=== PATIENT | female | born 1985 | race Caucasian/White ===

== ENCOUNTER 2020-03-19 17:28 | Emergency (ER) | payer SELFPAY ==
[2020-03-19 17:40] VITALS: BP 144/84; PULSE 85; RESP 16; TEMP 36.9; O2SAT 99; BMI 25.5
--- NOTE | 2020-03-19 17:40 | ED_ITS ---
HPI - Extremity Injury (Lower) General: Chief Complaint: Extremity Injury, Lower Stated Complaint: foot pain Time Seen by Provider: 03/19/20 17:39 Source: patient Mode of arrival: ambulatory Limitations: no limitations History of Present Illness: HPI Narrative: Patient comes in for injury of the left knee. Patient was using a chainsaw and it kicked back on her laceration her left knee. Patient is ambulatory does report some tenderness to the knee. Patient has good tendon flexion and extension. Patient appears well. Patient denies any chronic medical problems. Patient appears in mild pain. MD complaint: knee injury Review of Systems General: Reports: 10 or more systems reviewed and unremarkable except in HPI and below Skin/Breast: Reports: other (Laceration left knee) [facility] ED PFSH: Social History (Updated 03/19/20 @ 17:09 by Margaret Cardenas LPN) Smoking and tobacco status: current every day smoker Physical Exam Const: COMMON NORMALS: no apparent distress and oriented x3 GENERAL APPEARANCE: cooperative HENMT: COMMON NORMALS: normocephalic, TM's normal bilaterally and external nose normal HEAD & SCALP: normal to inspection and normocephalic NOSE: external nose normal TYMPANIC MEMBRANE: TM's normal bilaterally MOUTH: oral and palatal mucosa normal THROAT: posterior oropharynx normal Eye: GENERAL EYE: normal appearance of both eyes Neck/C-Spine: COMMON NORMALS: full ROM Lymph: LYMPHATIC: no lymphadenopathy noted Chest: COMMONS NORMALS: inspection of chest normal Resp: COMMON NORMALS: normal respiratory effort EFFORT & INSPECTION: Yes able to speak in complete sentences Cardio: COMMON NORMALS: regular rate and regular rhythm RATE: regular rate RHYTHM: regular rhythm GI: COMMON NORMALS: non-tender : COMMON NORMALS: Yes no CVA tenderness BLADDER/KIDNEY EXAM: Yes no CVA tenderness Back/Pelvis: COMMON NORMALS: no CVA tenderness and thoracic and lumbar spine normal to inspection Extremity: COMMON NORMALS: normal to inspection Neuro: COMMON NORMALS: oriented x3 and moves all extremities Psych: COMMON NORMALS: mental status grossly normal and cooperative Skin: NARRATIVE SKIN EXAM: 5 cm laceration to the left knee. Examination of the knee notes no foreign body. No obvious bony injury. Tendon function is normal. Procedures Laceration Laceration 1: Site: lower extremity (Left knee) Side (If applicable): left Size (cm): 5 Description: linear Depth: simple, single layer Local Anesthetic: lidocaine 2% and with epi Amount of anesthesia used (mL): 8 Pre-repair: wound explored, irrigated extensively and deep structures intact Skin layer closed with: nylon Size (cm): 4-0 Number of sutures: 10 Technique: simple, interrupted Course Vital Signs: Vital signs: Vital Signs Temperature 98.4 F 03/19/20 17:40 Pulse Rate 85 03/19/20 17:40 Respiratory Rate 16 03/19/20 17:40 Blood Pressure 144/84 03/19/20 17:40 Pulse Oximetry 99 03/19/20 17:40 MDM - Extremity Injury (Lower) MDM Narrative: Medical decision making narrative: Patient comes in for injury to the left knee. On exam patient has a 5 cm laceration to the left knee that is horizontal. Tendon function is normal. Examination of the wound notes no foreign body. No obvious injury to the underlying structures is noted. Differential diagnosis includes laceration, fracture, tendon injury, foreign body. X-ray of the knee noted no obvious bony injury except on the oblique there might be some questionable injury although is most likely just debris from the chainsaw. Wound was irrigated well and closed with 10 simple interrupted sutures. Patient was put on crutches and wound was dressed with a dry dressing. Patient will be put on antibiotics cephalexin 503 times a day for the next 10 days along with some medication for pain and discomfort. Patient reports understanding of wound care and need for sutures and recheck of wound site. Discharge Plan Discharge Patient Disposition: Home, Self-Care Clinical Impression: Laceration of knee Qualifiers: Encounter type: initial encounter Laterality: left Qualified Code(s): S81.012A - Laceration without foreign body, left knee, initial encounter Condition: Stable Prescriptions: New hydrocodone-acetaminophen 5-325 mg tablet 1 tab PO Q6H PRN (Reason: pain (scale score 7-10)) Qty: 7 RF: 0 cephalexin 500 mg capsule 500 mg PO TID 10 Days Qty: 30 RF: 0 No Action ibuprofen 200 mg Tablet 800 mg PO PRN RF: 0 Discharge Orders: Discharge Order (Routine); Ordered 03/19/20 Ordered By: Srinath Simon Referrals: Radha Marie, [employer] [Primary Care Provider] - Wilber Duarte MD [Family Provider] - Discharge Diet: Usual diet Discharge Activity: Increase activity as tolerated Patient Instructions: Laceration (ED) Activity Restrictions/Additional Instructions: Home and rest. Keep wound clean and dry. Is important to keep the wound dry for the next 2 days. Sutures out in 10 to 14 days. Monitor for high fever or worsening signs and symptoms if this occurs return to the emergency department. Follow-up with primary care in 1 week for recheck of wound site. Coding Level of Care Code ED [employer] for Edi Giles Exam Comprehensive
--- NOTE | 2020-03-19 17:43 | XR_ITS ---
WS: [id number] LEFT KNEE: 3 VIEW(S) TECHNIQUE: AP, oblique(s) and lateral. HISTORY: injury COMPARISON: None available. Seen on the oblique image are small osseous densities adjacent to the patella suspicious for avulsion fractures. There is a concave defect in the surface of the patella. Adjacent to the patella is a soft tissue injury and laceration. XR/XR knee LT 3V* [id number] IMPRESSION: 1. Small avulsion fractures with concave defect in the patella. Seen best on t he oblique image. 2. Adjacent soft tissue injury/laceration.
[2020-03-19] MEDS: cephALEXin 500 mg Capsule PO (17:59)
[2020-03-19] MEDS: HYDROcodone-acetaminophen 5-325 mg Tablet 1 TAB PO (17:59)
[2020-03-19 19:03] VITALS: BP 136/76; PULSE 90; RESP 16; O2SAT 100
== END 2020-03-19 19:05 | disposition home or self-care (01) ==
PROVIDERS: Emergency Provider Nurse Practitioner Family; Family Provider Family Medicine; PCP Nurse Practitioner
DX: S81.012A Laceration without foreign body, left knee, initial encounter (principal); W29.3XXA Contact with powered garden and outdoor hand tools and machinery, initial encounter; F17.210 Nicotine dependence, cigarettes, uncomplicated
CPT/HCPCS: 12002; 12345; 73562; 99281; 99283; E0114; J2001